=== PATIENT | male | born 1950 | race Two or more races ===

== ENCOUNTER → 2019-02-10 | Day surgery (SDC) | payer MEDICARE, OTHER ==
[~2019-02-10] VITALS: Ht 172.7 cm; Wt 104.3 kg
[2019-02-10] VITALS (8 sets, daily range): BP systolic 112–127; BP diastolic 50–81
[~2019-02-10] MED LIST: ASPIRIN EC81 MG ORAL; ATORVASTATIN CA20 MG ORAL; LR 1000ml 1,000 ML IVLG SCH; LR 1000ml ONE; Lidocaine 1% MPF 10mg/ml 5ml ONE; METOPROLOL SUCC25 MG ORAL; Propofol 200mg/20ml IV ONE
--- NOTE | 2019-02-10 10:04 | Pre-Procedure Note/Attestation ---
Pre-Procedure Note/Attestation Complete Prior to Procedure Planned Procedure: not applicable Procedure Narrative: egd/colooscopy Indications for Procedure Pre-Operative Diagnosis: screaming, gerd Attestation I attest that I discussed the nature of the procedure; its benefits; risks and complications; and alternatives (and the risks and benefits of such alternatives ), prior to the procedure, with the patient (or the patient's legal sales representative graphic art). I attest that, if there was a reasonable possibility of needing a blood transfusion, the patient (or the patient's legal sales representative graphic art) was given the [facility] standardized written summary, pursuant to the Mike Hossein Blood Safety Act ([place] Health and Safety Code # 1645, as amended). I attest that I re-evaluated the patient just prior to the surgery and that there has been no change in the patient's H&P, except as documented below: Caleb Baker MD Feb 10, 2019 10:04
--- NOTE | 2019-02-10 10:04 | Short Stay Surgery H&P ---
History of Present Illness History of Present Illness Chief Complaint see recent office note HPI Jose E Phan is a 68 year old male who was admitted on for Chronic Gerd, Screening Colonoscopy Patient History Allergies: Coded Allergies: No Known Allergies (Unverified , 02/10/19) Medication History Scheduled Aspirin Ec* (Aspirin Ec*), 81 MG ORAL DAILY, (Reported) Atorvastatin Calcium* (Atorvastatin Calcium*), Unknown Dose ORAL BEDTIME, ( Reported) Metoprolol Succinate* (Metoprolol Succinate*), 100 MG ORAL DAILY, (Reported) Physical Exam Vital Signs Last Vital Signs Date Time Temp Pulse Resp B/P (MAP) Pulse Ox O2 Delivery O2 Flow Rate FiO2 02/10/19 09:23 Room Air 02/10/19 09:20 97.1 75 18 127/63 97 Plan Attestation Are the patient's medical conditions optimized for surgery? Caleb Baker MD Feb 10, 2019 10:04
--- NOTE | 2019-02-10 10:17 | Endoscopy Procedure Note ---
Endoscopy Procedure Note General Indication for Procedure: screening colon, GERD Procedures Performed: EGD, colonoscopy Operative Findings/Diagnosis: gastritis, hemorrhoids Specimen: yes Pt Tolerated Procedure Well: Yes Estimated Blood Loss: none Anesthesia Anesthesiologist: eddie Anesthesia: MAC Inserted Devices Implant(s) used?: No Quality Quality of Bowel Preparation: Good Did scope reach the cecum?: Yes Was there any complications?: No GI Core Measures 50 yrs or older w/o bx or poly: No 10yrs. F/U recommended: Yes If not recommended, why?: Above average risk 18 years or older w/prev. colo: No Caleb Baker MD Feb 10, 2019 10:17
--- NOTE | 2019-02-10 10:45 | Anethesia Preoperative Eval ---
Anesthesia Pre-op PMH/ROS General Date of Evaluation: Feb 10, 2019 Time of Evaluation: 10:00 Anesthesiologist: donya ASA Score: ASA 2 Mallampati Score Class I : Soft palate, uvula, fauces, pillars visible Class II: Soft palate, uvula, fauces visible Class III: Soft palate, base of uvula visible Class IV: Only hard plate visible Mallampati Classification: Class II Surgeon: Olivia Diagnosis: GERD Surgical Procedure: EGD/Colon Anesthesia History: none Family History: no anesthesia problems Allergies: Coded Allergies: No Known Allergies (Unverified , 02/10/19) Medications: see eMAR Patient NPO?: Yes NPO Date: Feb 10, 2019 NPO Time: 00:01 Past Medical History Cardiovascular: Reports: HTN, CAD Gastrointestinal/Genitourinary: Reports: GERD; Denies: CRI, ESRD, other Neurologic/Psychiatric: Denies: dementia, CVA, depression/anxiety, TIA, other Endocrine: Denies: DM, hypothyroidism, steroids, other HEENT: Denies: cataract (L), cataract (R), glaucoma, TLINGIT & HAIDA (L), TLINGIT & HAIDA (R), other Hematology/Immune: Denies: anemia, DVT, bleeding disorder, other Other: obesity PSxH Narrative: CABG Anesthesia Pre-op Phys. Exam Physician Exam Last Vital Signs Date Time Temp Pulse Resp B/P (MAP) Pulse Ox O2 Delivery O2 Flow Rate FiO2 02/10/19 09:23 Room Air 02/10/19 09:20 97.1 75 18 127/63 97 Constitutional: NAD Neurologic: CN 2-12 intact Cardiovascular: RRR Respiratory: CTA Gastrointestinal: S/NT/ND Airway Exam Mallampati Score: Class II MO: full Neck: thick TMD: 2fb ROM: full Dentures: no upper, no lower Anesthesia Pre-op A/P Studies Pre-op Studies: EKG - SR Risk Assessment & Plan Assessment: Denies CP/SOB/or changes in health Plan: MAC Status Change Before Surgery: No Pre-Antibiotics Drug: none Rhiannon Osorio CRNA Feb 10, 2019 10:45
--- NOTE | 2019-02-10 10:46 | Immediate Post-Op Evaluation ---
Immediate Post-Op Evalulation Immediate Post-Op Evalulation Procedure: EGD/Colonoscopy Date of Evaluation: Feb 10, 2019 Time of Evaluation: 05:00 IV Fluids: 500 Blood Pressure Systolic: 113 Blood Pressure Diastolic: 76 Pulse Rate: 74 Respiratory Rate: 14 O2 Sat by Pulse Oximetry: 99 Temperature (Fahrenheit): 97.0 Pain Score (1-10): 0 Nausea: No Vomiting: No Complications none Patient Status: awake, reacts, patent Hydration Status: adequate Drug: none Rhiannon Osorio CRNA Feb 10, 2019 10:46
--- NOTE | 2019-02-10 12:09 | 48 Hour Post Anesthesia Eval ---
Post Anesthesia Evaluation Procedure: EGD/Colonoscopy Date of Evaluation: Feb 10, 2019 Time of Evaluation: 12:08 Blood Pressure Systolic: 125 0: 50 Pulse Rate: 70 Respiratory Rate: 14 O2 Sat by Pulse Oximetry: 98 Airway: patent Nausea: No Vomiting: No Hydration Status: adequate Cardiopulmonary Status: stable Mental Status/LOC: patient returned to baseline Post-Anesthesia Complications: none Follow-up care needed: N/A Rhiannon Osorio CRNA Feb 10, 2019 12:09
--- NOTE | 2019-02-10 14:55 | Cardiology Report ---
APPROVED REPORT EKG Measurement Heart [id number] Normal sinus rhythm Low voltage QRS Septal infarct, age undetermined Abnormal ECG
--- NOTE | 2019-02-10 15:15 | Procedure Note ---
DATE OF PROCEDURE: 02/10/2019 SURGEON: Caleb Baker M.D. PROCEDURE: Upper endoscopy with biopsy and colonoscopy with biopsy. ANESTHESIA: Per TAILOR FITTER, Rhiannon Osorio. INSTRUMENT: Olympus adult flexible upper endoscope and colonoscope. INDICATION: Screening colonoscopy evaluation and chronic GERD. REASON FOR PROCEDURE: The procedure, risks, benefits, and possible consequences, including hemorrhage, aspiration, perforation and infection, and alternative treatments, were explained to the patient/legal guardian by Dr. Caleb Baker and the patient/legal guardian understood and accepted these risks. PROCEDURE IN DETAIL: After informed consent was obtained and the patient was adequately sedated, Olympus upper endoscope was advanced from the mouth into second portion of duodenum and retroflexion was performed in the stomach. The patient has evidence of diffuse gastritis. Random biopsy from antrum and body was obtained to rule out DH. pylori infection. The rest of the upper endoscopic examination grossly within limits. At this time, the upper endoscope was retrieved and the patient was turned over for colonoscopy. First, rectal exam was performed, which was positive for internal hemorrhoids. Then, the scope was the advance from the rectum into cecum documented by appendix orifice, ileocecal valve, and right upper quadrant palpation. Quality of prep was good. The patient had total of five polyps in this colon; 1 in the cecum, 1 in the ascending colon, 2 in transverse and 1 in the sigmoid; all removed with cold biopsy forceps technique. All less than 5 mm. There was no other pathology was seen in this colonoscopy examination. Retroflexion of the rectum showed evidence of internal hemorrhoids. SUMMARY OF FINDINGS: 1. Gastritis, status post biopsy. 2. Five colonic polyps removed. See above for details. 3. Internal hemorrhoids. RECOMMENDATIONS: Follow pathology and treat accordingly. We recommend repeat colonoscopy in 5 years. Caleb Baker M.D. DR: GRETCHEN JOB#: [id number] CC:
== END | disposition home or self-care (01) ==
LOC: SUR 08:38
DX: K29.70 Gastritis, unspecified, without bleeding (principal); K64.8 Other hemorrhoids; D12.2 Benign neoplasm of ascending colon; D12.0 Benign neoplasm of cecum; D12.5 Benign neoplasm of sigmoid colon; D12.3 Benign neoplasm of transverse colon; I25.10 Atherosclerotic heart disease of native coronary artery without angina pectoris; I10 Essential (primary) hypertension; Z95.1 Presence of aortocoronary bypass graft
CPT/HCPCS: 43239; 45380; 93005; J2704; J7120

== ENCOUNTER 2019-02-24 13:58 | Outpatient (CLI) | payer MEDICARE, OTHER ==
[~2019-02-24 13:58] MED LIST changes: -LR 1000ml 1,000 ML IVLG SCH; -LR 1000ml ONE; -Lidocaine 1% MPF 10mg/ml 5ml ONE; -Propofol 200mg/20ml IV ONE
--- NOTE | 2019-02-24 14:21 | General Progress Note ---
Assessment/Plan Assessment/Plan: SUMMARY OF FINDINGS: 1. Gastritis, status post biopsy. 2. Five colonic polyps removed. See above for details. 3. Internal hemorrhoids HP positive treat for HP RTC 3 months repeat colon in 5 years Subjective ROS Limited/Unobtainable: Yes Allergies: Coded Allergies: No Known Allergies (Unverified , 02/10/19) Objective General Appearance: alert EENT: normal ENT inspection Neck: supple Cardiovascular: normal rate Respiratory/Chest: decreased breath sounds Abdomen: normal bowel sounds, non tender, soft Extremities: non-tender Caleb Baker MD Feb 24, 2019 14:21
[2019-02-24 15:24] VITALS: BP 126/60
== END 2019-02-24 15:58 | disposition home or self-care (01) ==
LOC: PAN 13:58
DX: K29.70 Gastritis, unspecified, without bleeding (principal); K63.5 Polyp of colon; K64.8 Other hemorrhoids